=== PATIENT | male | born 1985 | race Hispanic/Latino ===

== ENCOUNTER 2022-12-21 14:47 | Emergency (ER) | payer BC, OTHER ==
[~2022-12-21] VITALS: Ht 170.2 cm; Wt 105.2 kg
[~2022-12-21 14:47] MED LIST: CEPH PO
[2022-12-21] MEDS ORDERED: IBUPROFEN 600 MG TABLET PO ONE (16:30)
[2022-12-21 17:20] VITALS: BP 149/93
[2022-12-21] MEDS ORDERED: IBUP-2070 PO (17:25)
== END 2022-12-21 17:41 | disposition home or self-care (01) ==
LOC: EDH 14:47
DX: S29.9XXA Unspecified injury of thorax, initial encounter (principal); M25.562 Pain in left knee; M54.50 Low back pain, unspecified; V89.2XXA Person injured in unspecified motor-vehicle accident, traffic, initial encounter; Y93.89 Activity, other specified; Y92.89 Other specified places as the place of occurrence of the external cause; Y99.8 Other external cause status
CPT/HCPCS: 71045; 72100; 73562